=== PATIENT | female | born 1960 | race Caucasian/White ===

== ENCOUNTER → 2016-08-17 | Outpatient (CLI) | payer MEDICARE, MEDICAID ==
[~2016-08-17] MED LIST: ACET-1757 PO; ALBU0.63 NEB; AMLO5TAB2 PO; ASPI-496 PO; ASPI-621 PO; BISA10SU2 PR; BLOOD PRESSURE PO; CALC667C PO; CARV12.52 PO; CEFPODOXIME; CEPH-368 PO; CHOL500014 PO; CLON-275 PO; DAPT500V6 IV; DARB60VI SQ; DIPH25CA61 PO; DOCU-30 PO; DOXY100C2; DOXY100T PO; ERGO500017 PO; FENO145T13 PO; FLUO40CA9 PO; FLUT1AER INH; FOLI0.8T7 PO; FOLI1TAB39 PO; FURO80TA3 PO; GABA300C PO; GABA300C10 PO; GLIP10TA20 PO; HYDR-3138 PO; HYDR-3342 PO; INSU100C SQ-INSULIN; INSU100C5 SQ; INSU100I13 SQ; INSU100I28 SQ; IPRA15SP INH; LEVO750T26 PO; LINE600T37 PO; LISI-167 PO; LISI40TA PO; LOSA50TA2 PO; METF750T PO; METH4TAB2 PO; MIDO2.5T PO; MIGRAINE SL; OSEL75CA PO; OXYC-302 PO; OXYC5CAP4 PO; POLY17PO5 PO; PRAV40TA2 PO; RIZA10TA20 PO; SENN8.6C2 PO; SEVE800T8 PO; SITA100T PO; SODI650T PO; TICA90TA PO; TRAZ100T15 PO; TRAZ50TA18 PO
[2016-08-17 15:48] LABS: HEMOGLOBIN 11.8 g/dL (11.7-16.4)
[2016-08-17 16:00] LABS: BLOOD UREA NITROGEN 27 mg/dL (7-18)
[2016-08-17 16:03] LABS: ASPARTATE AMINO TRANSFERASE 20 U/L (15-37)
== END | disposition home or self-care (01) ==
LOC: CFH 13:54
PROVIDERS: ATTEND Internal Medicine Gastroenterology
DX: I11.0 Hypertensive heart disease with heart failure (principal); I50.9 Heart failure, unspecified; I25.10 Atherosclerotic heart disease of native coronary artery without angina pectoris; I12.0 Hypertensive chronic kidney disease with stage 5 chronic kidney disease or end stage renal disease; E11.65 Type 2 diabetes mellitus with hyperglycemia; E11.22 Type 2 diabetes mellitus with diabetic chronic kidney disease; N18.6 End stage renal disease
CPT/HCPCS: 36415; 80048; 80076; 82784; 83516; 85025; 85610

== ENCOUNTER → 2016-08-23 | Outpatient (CLI) | payer MEDICARE, MEDICAID | END | disposition home or self-care (01) | LOC: CFH 08:31 | PROVIDERS: ATTEND Internal Medicine | DX: J90 Pleural effusion, not elsewhere classified (principal); J98.11 Atelectasis | CPT/HCPCS: 71250 ==

== ENCOUNTER → 2016-09-01 | Outpatient (CLI) | payer MEDICAID, MEDICARE ==
[~2016-09-01] MED LIST changes: +LIDOCAINE 1%, 20ML ONE; +SODIUM BICARBONATE 4.2%, 5ML ONE
== END | disposition home or self-care (01) ==
LOC: RAD 07:53
PROVIDERS: ATTEND Internal Medicine Gastroenterology
DX: R18.8 Other ascites (principal); R14.0 Abdominal distension (gaseous); R10.9 Unspecified abdominal pain
CPT/HCPCS: 49083; J3490

== ENCOUNTER → 2016-09-28 | Outpatient (CLI) | payer MEDICAID, MEDICARE ==
[~2016-09-28] MED LIST changes: +AZIT250T89 PO; +CEFD300C37 PO; -LIDOCAINE 1%, 20ML ONE; -SODIUM BICARBONATE 4.2%, 5ML ONE; +TIOT4MIS3 INH
== END | disposition home or self-care (01) ==
LOC: CARD 11:29
PROVIDERS: ATTEND Internal Medicine
DX: J44.9 Chronic obstructive pulmonary disease, unspecified (principal)
CPT/HCPCS: 94060; 94620; 94726; 94729

== ENCOUNTER → 2016-10-29 | Outpatient (CLI) | payer MEDICARE ==
[~2016-10-29] MED LIST changes: +ALBUMIN HUMAN 25%, 25GM/100ML ONE; +LIDOCAINE 1%, 20ML ONE
== END | disposition home or self-care (01) ==
LOC: RAD 07:35
PROVIDERS: ATTEND Internal Medicine Gastroenterology
DX: R18.8 Other ascites (principal); R14.0 Abdominal distension (gaseous); R10.9 Unspecified abdominal pain; R93.8 Abnormal findings on diagnostic imaging of other specified body structures; I50.9 Heart failure, unspecified; I25.10 Atherosclerotic heart disease of native coronary artery without angina pectoris; N18.6 End stage renal disease; E11.65 Type 2 diabetes mellitus with hyperglycemia; I27.2 Other secondary pulmonary hypertension
CPT/HCPCS: 49083; J3490; P9047

== ENCOUNTER → 2016-11-04 | Outpatient (CLI) | payer MEDICARE ==
[~2016-11-04] MED LIST changes: -ALBUMIN HUMAN 25%, 25GM/100ML ONE; -LIDOCAINE 1%, 20ML ONE
== END | disposition home or self-care (01) ==
LOC: WOUND 12:52
PROVIDERS: ATTEND Podiatrist Foot & Ankle Surgery
DX: E11.621 Type 2 diabetes mellitus with foot ulcer (principal); L97.521 Non-pressure chronic ulcer of other part of left foot limited to breakdown of skin; I25.10 Atherosclerotic heart disease of native coronary artery without angina pectoris; E11.40 Type 2 diabetes mellitus with diabetic neuropathy, unspecified; J44.9 Chronic obstructive pulmonary disease, unspecified; E11.51 Type 2 diabetes mellitus with diabetic peripheral angiopathy without gangrene; E11.319 Type 2 diabetes mellitus with unspecified diabetic retinopathy without macular edema; F32.9 Major depressive disorder, single episode, unspecified; E11.22 Type 2 diabetes mellitus with diabetic chronic kidney disease; I13.2 Hypertensive heart and chronic kidney disease with heart failure and with stage 5 chronic kidney disease, or end stage renal disease; I50.9 Heart failure, unspecified; N18.6 End stage renal disease; Z99.2 Dependence on renal dialysis; I25.2 Old myocardial infarction; Z87.891 Personal history of nicotine dependence
CPT/HCPCS: 11042; G0463; WOU0463

== ENCOUNTER → 2016-11-11 | Outpatient (CLI) | payer MEDICARE | END | disposition home or self-care (01) | LOC: WOUND 13:17 | PROVIDERS: ATTEND Podiatrist Foot & Ankle Surgery | DX: E11.621 Type 2 diabetes mellitus with foot ulcer (principal); L97.521 Non-pressure chronic ulcer of other part of left foot limited to breakdown of skin; E11.40 Type 2 diabetes mellitus with diabetic neuropathy, unspecified; J44.9 Chronic obstructive pulmonary disease, unspecified; E11.22 Type 2 diabetes mellitus with diabetic chronic kidney disease; N18.4 Chronic kidney disease, stage 4 (severe); I25.2 Old myocardial infarction; Z89.432 Acquired absence of left foot; Z89.411 Acquired absence of right great toe; Z98.42 Cataract extraction status, left eye; Z98.41 Cataract extraction status, right eye; Z87.891 Personal history of nicotine dependence | CPT/HCPCS: 11042 ==

== ENCOUNTER → 2016-11-18 | Outpatient (CLI) | payer MEDICARE | END | disposition home or self-care (01) | LOC: WOUND 11:00 | PROVIDERS: ATTEND Podiatrist Foot & Ankle Surgery | DX: E11.621 Type 2 diabetes mellitus with foot ulcer (principal); L97.521 Non-pressure chronic ulcer of other part of left foot limited to breakdown of skin; E11.40 Type 2 diabetes mellitus with diabetic neuropathy, unspecified; J44.9 Chronic obstructive pulmonary disease, unspecified; E11.22 Type 2 diabetes mellitus with diabetic chronic kidney disease; I13.2 Hypertensive heart and chronic kidney disease with heart failure and with stage 5 chronic kidney disease, or end stage renal disease; I50.9 Heart failure, unspecified; N18.6 End stage renal disease; Z99.2 Dependence on renal dialysis; I25.2 Old myocardial infarction; I25.10 Atherosclerotic heart disease of native coronary artery without angina pectoris; E11.51 Type 2 diabetes mellitus with diabetic peripheral angiopathy without gangrene; E11.319 Type 2 diabetes mellitus with unspecified diabetic retinopathy without macular edema; F41.9 Anxiety disorder, unspecified; E78.5 Hyperlipidemia, unspecified; G43.909 Migraine, unspecified, not intractable, without status migrainosus; Z86.73 Personal history of transient ischemic attack (TIA), and cerebral infarction without residual deficits; Z86.711 Personal history of pulmonary embolism; Z89.411 Acquired absence of right great toe; Z79.4 Long term (current) use of insulin; Z89.432 Acquired absence of left foot; F17.210 Nicotine dependence, cigarettes, uncomplicated; E11.42 Type 2 diabetes mellitus with diabetic polyneuropathy | CPT/HCPCS: 11042 ==

== ENCOUNTER → 2016-11-24 | Outpatient (CLI) | payer MEDICARE ==
[~2016-11-24] MED LIST changes: +ALBUMIN HUMAN 25%, 25GM/100ML ONE; +LIDOCAINE 2%, 20ML ONE
== END | disposition home or self-care (01) ==
LOC: RAD 08:02
PROVIDERS: ATTEND Internal Medicine Gastroenterology
DX: R18.8 Other ascites (principal); R93.8 Abnormal findings on diagnostic imaging of other specified body structures; I50.9 Heart failure, unspecified; N18.6 End stage renal disease; I25.10 Atherosclerotic heart disease of native coronary artery without angina pectoris; E11.65 Type 2 diabetes mellitus with hyperglycemia; I27.2 Other secondary pulmonary hypertension
CPT/HCPCS: 49083; J3490; P9047

== ENCOUNTER → 2016-11-25 | Outpatient (CLI) | payer MEDICARE ==
[~2016-11-25] MED LIST changes: -ALBUMIN HUMAN 25%, 25GM/100ML ONE; -LIDOCAINE 2%, 20ML ONE
== END | disposition home or self-care (01) ==
LOC: WOUND 11:10
PROVIDERS: ATTEND Podiatrist Foot & Ankle Surgery
DX: E11.621 Type 2 diabetes mellitus with foot ulcer (principal); L97.521 Non-pressure chronic ulcer of other part of left foot limited to breakdown of skin; J44.9 Chronic obstructive pulmonary disease, unspecified; I25.2 Old myocardial infarction; F41.9 Anxiety disorder, unspecified; E11.319 Type 2 diabetes mellitus with unspecified diabetic retinopathy without macular edema; E11.51 Type 2 diabetes mellitus with diabetic peripheral angiopathy without gangrene; E11.42 Type 2 diabetes mellitus with diabetic polyneuropathy; E11.22 Type 2 diabetes mellitus with diabetic chronic kidney disease; I13.2 Hypertensive heart and chronic kidney disease with heart failure and with stage 5 chronic kidney disease, or end stage renal disease; N18.6 End stage renal disease; I50.9 Heart failure, unspecified; E78.5 Hyperlipidemia, unspecified; Z98.42 Cataract extraction status, left eye; Z98.41 Cataract extraction status, right eye; F17.210 Nicotine dependence, cigarettes, uncomplicated; Z86.711 Personal history of pulmonary embolism; Z86.73 Personal history of transient ischemic attack (TIA), and cerebral infarction without residual deficits; Z79.4 Long term (current) use of insulin; Z99.2 Dependence on renal dialysis; Z90.710 Acquired absence of both cervix and uterus; Z89.411 Acquired absence of right great toe; Z89.432 Acquired absence of left foot
CPT/HCPCS: 11042

== ENCOUNTER 2016-12-07 04:07 | Emergency (ER) | payer MEDICARE ==
[~2016-12-07] VITALS: Ht 160 cm; Wt 81.2 kg
[2016-12-07] MEDS ORDERED: OXYcodone/APAP 5/325MG TABLET ONE (05:07)
[2016-12-07] MEDS ORDERED: ONDANSETRON ODT 4 MG ONE (05:08)
[2016-12-07 05:14] VITALS: BP 107/41
[2016-12-07] MEDS ORDERED: OXYcodone/APAP 5/325MG TABLET PO ONE (05:30)
[2016-12-07] MEDS ORDERED: ONDANSETRON ODT 4 MG PO ONE (05:30)
== END 2016-12-07 05:27 | disposition home or self-care (01) ==
LOC: ED 05:20
DX: S09.90XA Unspecified injury of head, initial encounter (principal); I11.9 Hypertensive heart disease without heart failure; E11.65 Type 2 diabetes mellitus with hyperglycemia; J44.9 Chronic obstructive pulmonary disease, unspecified; I25.2 Old myocardial infarction; E87.1 Hypo-osmolality and hyponatremia; W03.XXXA Other fall on same level due to collision with another person, initial encounter; Y93.89 Activity, other specified; Y92.091 Bathroom in other non-institutional residence as the place of occurrence of the external cause; Y99.9 Unspecified external cause status
CPT/HCPCS: 70450; 99284; Q0162

== ENCOUNTER 2016-12-09 11:38 | Emergency (ER) | payer MEDICARE ==
[~2016-12-09] VITALS: Ht 160 cm; Wt 77.1 kg
[2016-12-09] MEDS ORDERED: SODIUM CHLORIDE FLUSH 10ML SYR IVF ONE (13:00)
[2016-12-09] MEDS ORDERED: SODIUM CHLORIDE 0.9% 1,000ML IVBOLUS ONE (13:00)
[2016-12-09] MEDS ORDERED: HYDROmorphone 1 MG/ML, 1ML IVPush PRN (13:00)
[2016-12-09] MEDS ORDERED: ONDANSETRON 2MG/ML, 2ML IVPush ONE (13:00)
[2016-12-09 13:06] LABS: ASPARTATE AMINO TRANSFERASE 21 U/L (15-37); BLOOD UREA NITROGEN 28 mg/dL (7-18)
[2016-12-09] MEDS ORDERED: HYDROmorphone 1 MG/ML, 1ML ONE (13:06)
[2016-12-09] MEDS ORDERED: ONDANSETRON 2MG/ML, 2ML ONE (13:06)
[2016-12-09 15:08] LABS: IS PT STATUS REG ER OR PRE ER? YES
[2016-12-09 15:28] VITALS: BP 108/57
== END 2016-12-09 15:30 | disposition home or self-care (01) ==
LOC: ED 14:36
DX: E11.9 Type 2 diabetes mellitus without complications (principal); I11.9 Hypertensive heart disease without heart failure; J44.9 Chronic obstructive pulmonary disease, unspecified; I25.2 Old myocardial infarction; Z90.49 Acquired absence of other specified parts of digestive tract; Z88.0 Allergy status to penicillin; Z88.2 Allergy status to sulfonamides; Z88.6 Allergy status to analgesic agent
CPT/HCPCS: 36415; 70450; 80053; 84484; 85025; 93005; 96361; 96374; 96375; 99285; J1170; J2405; J7030

== ENCOUNTER → 2016-12-09 | Outpatient (CLI) | payer MEDICARE | END | disposition home or self-care (01) | LOC: WOUND 10:57 | PROVIDERS: ATTEND Podiatrist Foot & Ankle Surgery | DX: E11.621 Type 2 diabetes mellitus with foot ulcer (principal); L97.521 Non-pressure chronic ulcer of other part of left foot limited to breakdown of skin; J44.9 Chronic obstructive pulmonary disease, unspecified; I25.2 Old myocardial infarction; F41.9 Anxiety disorder, unspecified; F32.9 Major depressive disorder, single episode, unspecified; E78.5 Hyperlipidemia, unspecified; E11.51 Type 2 diabetes mellitus with diabetic peripheral angiopathy without gangrene; E11.40 Type 2 diabetes mellitus with diabetic neuropathy, unspecified; E11.319 Type 2 diabetes mellitus with unspecified diabetic retinopathy without macular edema; I25.10 Atherosclerotic heart disease of native coronary artery without angina pectoris; E11.22 Type 2 diabetes mellitus with diabetic chronic kidney disease; I13.2 Hypertensive heart and chronic kidney disease with heart failure and with stage 5 chronic kidney disease, or end stage renal disease; N18.6 End stage renal disease; I50.9 Heart failure, unspecified; F17.210 Nicotine dependence, cigarettes, uncomplicated; Z99.2 Dependence on renal dialysis; Z79.4 Long term (current) use of insulin; Z90.710 Acquired absence of both cervix and uterus; Z86.73 Personal history of transient ischemic attack (TIA), and cerebral infarction without residual deficits; Z86.711 Personal history of pulmonary embolism; Z98.41 Cataract extraction status, right eye; Z98.42 Cataract extraction status, left eye; Z89.411 Acquired absence of right great toe; Z89.421 Acquired absence of other right toe(s); Z89.432 Acquired absence of left foot | CPT/HCPCS: 97597; G0463; WOU0463 ==

== ENCOUNTER → 2016-12-16 | Outpatient (CLI) | payer MEDICARE | END | disposition home or self-care (01) | LOC: WOUND 11:03 | PROVIDERS: ATTEND Podiatrist Foot & Ankle Surgery | DX: E11.621 Type 2 diabetes mellitus with foot ulcer (principal); L97.521 Non-pressure chronic ulcer of other part of left foot limited to breakdown of skin; J44.9 Chronic obstructive pulmonary disease, unspecified; I25.2 Old myocardial infarction; E11.42 Type 2 diabetes mellitus with diabetic polyneuropathy; E11.22 Type 2 diabetes mellitus with diabetic chronic kidney disease; I13.2 Hypertensive heart and chronic kidney disease with heart failure and with stage 5 chronic kidney disease, or end stage renal disease; N18.6 End stage renal disease; I50.9 Heart failure, unspecified; Z99.2 Dependence on renal dialysis; I25.10 Atherosclerotic heart disease of native coronary artery without angina pectoris; F41.9 Anxiety disorder, unspecified; E78.5 Hyperlipidemia, unspecified; F32.9 Major depressive disorder, single episode, unspecified; E11.40 Type 2 diabetes mellitus with diabetic neuropathy, unspecified; E11.51 Type 2 diabetes mellitus with diabetic peripheral angiopathy without gangrene; E11.319 Type 2 diabetes mellitus with unspecified diabetic retinopathy without macular edema; Z86.711 Personal history of pulmonary embolism; Z86.73 Personal history of transient ischemic attack (TIA), and cerebral infarction without residual deficits; F17.210 Nicotine dependence, cigarettes, uncomplicated; Z79.4 Long term (current) use of insulin; Z89.421 Acquired absence of other right toe(s); Z90.710 Acquired absence of both cervix and uterus; Z89.411 Acquired absence of right great toe; Z89.432 Acquired absence of left foot | CPT/HCPCS: 11042 ==

== ENCOUNTER → 2016-12-22 | Outpatient (CLI) | payer MEDICARE ==
[~2016-12-22] MED LIST changes: +LIDOCAINE 1%, 20ML ONE
== END | disposition home or self-care (01) ==
LOC: RAD 07:59
PROVIDERS: ATTEND Internal Medicine Gastroenterology
DX: R18.8 Other ascites (principal); R93.8 Abnormal findings on diagnostic imaging of other specified body structures; I12.0 Hypertensive chronic kidney disease with stage 5 chronic kidney disease or end stage renal disease; I50.9 Heart failure, unspecified; N18.6 End stage renal disease; E11.22 Type 2 diabetes mellitus with diabetic chronic kidney disease; E11.65 Type 2 diabetes mellitus with hyperglycemia; I25.10 Atherosclerotic heart disease of native coronary artery without angina pectoris
CPT/HCPCS: 49083; J3490

== ENCOUNTER 2017-01-02 22:53 | Inpatient (IN) | payer MEDICARE, OTHER ==
[~2017-01-02] VITALS: Ht 160 cm; Wt 75.4 kg
[~2017-01-02 22:53] MED LIST changes: -LIDOCAINE 1%, 20ML ONE
[2017-01-02] MEDS ORDERED: ALBUTEROL/IPRATROPIUM 2.5MG/0.5MG, 3 ML NPPB SCH (23:00)
[2017-01-02] MEDS ORDERED: SODIUM CHLORIDE FLUSH 10ML SYR IVF ONE (23:00)
[2017-01-02] MEDS ORDERED: FUROSEMIDE 40 MG/4 ML IVP ONE (23:00)
[2017-01-02] MEDS ORDERED: ALBUTEROL/IPRATROPIUM 2.5MG/0.5MG, 3 ML ONE ×2 (23:16)
[2017-01-02 23:25] LABS: HEMATOCRIT 33.5 % (34.6-47.8); HEMOGLOBIN 10.8 g/dL (11.7-16.4); WHITE BLOOD COUNT 6.7 x10^3/uL (3.4-10)
[2017-01-02 23:39] LABS: ASPARTATE AMINO TRANSFERASE 25 U/L (15-37); BLOOD UREA NITROGEN 76 mg/dL (7-18)
[2017-01-02 23:50] LABS: IS PT STATUS REG ER OR PRE ER? YES
[2017-01-03] MEDS ORDERED: LEVOFLOXACIN/PMX 750MG/150ML 150 ML IV ONE (00:30)
[2017-01-03] MEDS ORDERED: LEVOFLOXACIN/PMX 750MG/150ML 150 ML ONE ×2 (00:34→00:35)
[2017-01-03] MEDS ORDERED: ONDANSETRON ODT 4 MG PO PRN (01:00)
[2017-01-03] MEDS ORDERED: ACETAMINOPHEN 325 MG TABLET PO PRN (01:00)
[2017-01-03] MEDS ORDERED: POLYETHYLENE GLYCOL 17 GM PACKET PO PRN (01:00)
[2017-01-03] MEDS ORDERED: hydrALAzine 20 MG/ML, 1ML IVPush PRN (01:00)
[2017-01-03 01:42] VITALS: BP 116/66
[2017-01-03] MEDS ORDERED: TIOT4MIS3 IH (02:08)
[2017-01-03 02:16] VITALS: BP 116/66
[2017-01-03] MEDS: HEPARIN 5,000 UNITS/ML, 1ML SQ SCH ×3 (02:29→17:27)
[2017-01-03] MEDS: ALBUTEROL/IPRATROPIUM 2.5MG/0.5MG, 3 ML NPPB SCH ×4 (05:13→20:00)
[2017-01-03] MEDS ORDERED: FUROSEMIDE 40 MG/4 ML IV SCH (07:30)
[2017-01-03 08:51] VITALS: BP 123/74
[2017-01-03] MEDS: INSULIN ASPART 100 UNITS/ML, PEN SQ-INSULIN SCH ×4 (08:53→21:31)
[2017-01-03] MEDS ORDERED: DARBEPOETIN 60 MCG/ML SQ SCH (11:30)
[2017-01-03] MEDS ORDERED: PHARMACY MAY ADJ FOR RENAL FX MC PRN (11:30)
[2017-01-03] MEDS ORDERED: CINA30TA PO (12:13)
[2017-01-03] MEDS ORDERED: VILA40TA PO (12:13)
[2017-01-03 13:32] VITALS: BP 122/76
[2017-01-03 18:50] VITALS: BP 119/68
[2017-01-03 21:30] VITALS: BP 124/68
[2017-01-04] MEDS ORDERED: LEVOFLOXACIN/PMX 750MG/150ML 150 ML IV SCH (00:30)
[2017-01-04 00:44] VITALS: BP 115/50
[2017-01-04] MEDS: HEPARIN 5,000 UNITS/ML, 1ML SQ SCH ×3 (00:48→16:28)
[2017-01-04] MEDS: TRAZODONE 50MG TABLET PO PRN (00:48)
[2017-01-04 06:18] LABS: HEMATOCRIT 31.3 % (34.6-47.8); HEMOGLOBIN 10.2 g/dL (11.7-16.4); WHITE BLOOD COUNT 8.8 x10^3/uL (3.4-10)
[2017-01-04 06:30] LABS: BLOOD UREA NITROGEN 53 mg/dL (7-18)
[2017-01-04] MEDS: INSULIN ASPART 100 UNITS/ML, PEN SQ-INSULIN SCH ×4 (07:00→20:43)
[2017-01-04 07:02] VITALS: BP 126/74
[2017-01-04] MEDS: ALBUTEROL/IPRATROPIUM 2.5MG/0.5MG, 3 ML NPPB SCH ×4 (07:36→19:25)
[2017-01-04 13:30] VITALS: BP 138/77
[2017-01-04 20:55] VITALS: BP 116/62
[2017-01-05] MEDS: HEPARIN 5,000 UNITS/ML, 1ML SQ SCH ×3 (02:12→18:23)
[2017-01-05 02:18] VITALS: BP 114/67
[2017-01-05] MEDS ORDERED: SIMETHICONE 80 MG CHEW TAB PO PRN (03:00)
[2017-01-05 06:27] LABS: BLOOD UREA NITROGEN 44 mg/dL (7-18)
[2017-01-05] MEDS: INSULIN ASPART 100 UNITS/ML, PEN SQ-INSULIN SCH ×4 (07:00→21:35)
[2017-01-05] MEDS: ALBUTEROL/IPRATROPIUM 2.5MG/0.5MG, 3 ML NPPB SCH ×4 (07:48→20:10)
[2017-01-05 07:59] VITALS: BP 127/79
[2017-01-05] MEDS: (Vilazodone Hydrochloride** (Viibryd**) 40 MG) HOMEMEDPO SCH (09:30)
[2017-01-05] MEDS: CINACALCET 30 MG TABLET PO SCH (11:03)
[2017-01-05] MEDS: ASPIRIN 81 MG TABLET EC PO SCH (11:03)
[2017-01-05] MEDS: MIDODRINE 2.5 MG TABLET PO SCH ×3 (11:56→21:34)
[2017-01-05] MEDS: SEVELAMER 2.4 GM POWD.PACK PO SCH ×2 (12:58→21:34)
[2017-01-05 16:09] VITALS: BP 129/84
[2017-01-05 16:54] VITALS: BP 128/80
[2017-01-05 18:01] VITALS: BP 130/80
[2017-01-05 20:46] VITALS: BP 129/73
[2017-01-05] MEDS ORDERED: TRAZODONE 50MG TABLET ONE ×2 (21:28→23:16)
[2017-01-05] MEDS: GABAPENTIN 300 MG CAPSULE PO SCH (21:34)
[2017-01-05] MEDS: TRAZODONE 50MG TABLET PO PRN ×2 (21:34→23:25)
[2017-01-06] MEDS ORDERED: ALBUTEROL/IPRATROPIUM 2.5MG/0.5MG, 3 ML IPPB PRN (00:30)
[2017-01-06] MEDS ORDERED: LEVOFLOXACIN/PMX 500MG/100ML 100 ML IV SCH (00:30)
[2017-01-06] MEDS: HEPARIN 5,000 UNITS/ML, 1ML SQ SCH ×3 (01:16→17:00)
[2017-01-06 01:19] VITALS: BP 128/81
[2017-01-06 05:39] LABS: HEMATOCRIT 33.6 % (34.6-47.8); HEMOGLOBIN 10.9 g/dL (11.7-16.4); WHITE BLOOD COUNT 9.4 x10^3/uL (3.4-10)
[2017-01-06 05:59] LABS: BLOOD UREA NITROGEN 65 mg/dL (7-18)
[2017-01-06] MEDS: INSULIN ASPART 100 UNITS/ML, PEN SQ-INSULIN SCH ×4 (07:00→21:36)
[2017-01-06] MEDS: ALBUTEROL/IPRATROPIUM 2.5MG/0.5MG, 3 ML NPPB SCH ×4 (07:46→19:00)
[2017-01-06 08:09] VITALS: BP 121/76
[2017-01-06] MEDS: (Vilazodone Hydrochloride** (Viibryd**) 40 MG) HOMEMEDPO SCH (09:00)
[2017-01-06] MEDS: SEVELAMER 2.4 GM POWD.PACK PO SCH ×3 (10:21→16:59)
[2017-01-06] MEDS: MIDODRINE 2.5 MG TABLET PO SCH ×3 (10:21→21:36)
[2017-01-06] MEDS: CINACALCET 30 MG TABLET PO SCH (10:21)
[2017-01-06] MEDS: ASPIRIN 81 MG TABLET EC PO SCH (10:21)
[2017-01-06 14:00] VITALS: BP 119/67
[2017-01-06 20:17] VITALS: BP 136/84
[2017-01-06] MEDS: GABAPENTIN 300 MG CAPSULE PO SCH (21:36)
[2017-01-06] MEDS ORDERED: TRAZODONE 50MG TABLET ONE (21:54)
[2017-01-06] MEDS: TRAZODONE 50MG TABLET PO PRN (21:59)
[2017-01-07 00:01] VITALS: BP 130/60
[2017-01-07] MEDS: HEPARIN 5,000 UNITS/ML, 1ML SQ SCH ×2 (01:00→08:58)
[2017-01-07 06:40] VITALS: BP 118/79
[2017-01-07] MEDS: ALBUTEROL/IPRATROPIUM 2.5MG/0.5MG, 3 ML NPPB SCH ×3 (07:25→14:55)
[2017-01-07] MEDS: INSULIN ASPART 100 UNITS/ML, PEN SQ-INSULIN SCH ×2 (08:57→12:12)
[2017-01-07] MEDS: CINACALCET 30 MG TABLET PO SCH (08:58)
[2017-01-07] MEDS: ASPIRIN 81 MG TABLET EC PO SCH (08:58)
[2017-01-07] MEDS: SEVELAMER 2.4 GM POWD.PACK PO SCH ×2 (08:58→12:12)
[2017-01-07] MEDS: (Vilazodone Hydrochloride** (Viibryd**) 40 MG) HOMEMEDPO SCH (08:59)
[2017-01-07] MEDS: MIDODRINE 2.5 MG TABLET PO SCH (08:59)
[2017-01-07] MEDS ORDERED: LEVO500T33 PO (11:40)
[2017-01-07] MEDS ORDERED: ALBU8.5H3 INH (11:40)
[2017-01-07 12:44] VITALS: BP 127/83
[2017-01-08] MEDS ORDERED: LEVOFLOXACIN 500 MG TABLET PO SCH (01:30)
== END 2017-01-07 15:00 | disposition home or self-care (01) | DRG 291 ==
LOC: ED 22:59 → EDIP 01-03 00:29 → 5SO 01-03 01:21 → 4EST 01-05 17:35
PROVIDERS: ADMIT Internal Medicine; ATTEND Internal Medicine
PROC: 5A1D60Z (ICD-10-PCS; principal; 2017-01-03)
DX: I13.2 Hypertensive heart and chronic kidney disease with heart failure and with stage 5 chronic kidney disease, or end stage renal disease (principal); J15.9 Unspecified bacterial pneumonia; I50.33 Acute on chronic diastolic (congestive) heart failure; J96.20 Acute and chronic respiratory failure, unspecified whether with hypoxia or hypercapnia; N18.6 End stage renal disease; J44.0 Chronic obstructive pulmonary disease with (acute) lower respiratory infection; J44.1 Chronic obstructive pulmonary disease with (acute) exacerbation; E44.0 Moderate protein-calorie malnutrition; E87.1 Hypo-osmolality and hyponatremia; F33.9 Major depressive disorder, recurrent, unspecified; J98.11 Atelectasis; L03.116 Cellulitis of left lower limb; N17.9 Acute kidney failure, unspecified; R18.8 Other ascites; N39.0 Urinary tract infection, site not specified; D63.1 Anemia in chronic kidney disease; E11.22 Type 2 diabetes mellitus with diabetic chronic kidney disease; E11.42 Type 2 diabetes mellitus with diabetic polyneuropathy; E11.65 Type 2 diabetes mellitus with hyperglycemia; E66.9 Obesity, unspecified; E78.5 Hyperlipidemia, unspecified; E55.9 Vitamin D deficiency, unspecified; G43.909 Migraine, unspecified, not intractable, without status migrainosus; I25.10 Atherosclerotic heart disease of native coronary artery without angina pectoris; I27.2 Other secondary pulmonary hypertension; K72.90 Hepatic failure, unspecified without coma; K75.81 Nonalcoholic steatohepatitis (NASH); M10.9 Gout, unspecified; S91.302A Unspecified open wound, left foot, initial encounter; W18.39XA Other fall on same level, initial encounter; I25.2 Old myocardial infarction; Z79.4 Long term (current) use of insulin; Z82.49 Family history of ischemic heart disease and other diseases of the circulatory system; Z83.3 Family history of diabetes mellitus; Z86.711 Personal history of pulmonary embolism; Z87.01 Personal history of pneumonia (recurrent); Z87.891 Personal history of nicotine dependence; Z95.5 Presence of coronary angioplasty implant and graft; Z99.2 Dependence on renal dialysis; Z99.81 Dependence on supplemental oxygen; Y93.89 Activity, other specified; Y92.098 Other place in other non-institutional residence as the place of occurrence of the external cause; Y99.8 Other external cause status; Z68.29 Body mass index [BMI] 29.0-29.9, adult; Z90.49 Acquired absence of other specified parts of digestive tract; Z98.51 Tubal ligation status; Z89.432 Acquired absence of left foot; Z98.49 Cataract extraction status, unspecified eye; Z88.5 Allergy status to narcotic agent; Z88.0 Allergy status to penicillin; Z88.2 Allergy status to sulfonamides; Z88.8 Allergy status to other drugs, medicaments and biological substances; Z80.8 Family history of malignant neoplasm of other organs or systems; Z84.89 Family history of other specified conditions
CPT/HCPCS: 36415; 71010; 80048; 80053; 81001; 82962; 83036; 83605; 83735; 83880; 84100; 84484; 85025; 85610; 87040; 87086; 93005; 93306; 94640; 96365; J0881; J1644; J1815; J1956; J7620; Q0162; J7512

== ENCOUNTER → 2017-01-13 | Outpatient (CLI) | payer MEDICARE ==
[~2017-01-13] MED LIST changes: +ALBU8.5H8 INH; -CHOL500014 PO; +CHOL500045 PO; +CINA30TA2 PO; +DOCU-131 PO; -DOCU-30 PO; +GLIP-164 PO; -GLIP10TA20 PO; -HYDR-3138 PO; +HYDR-3237 PO; +LEVO500T47 PO; +OXYC5CAP2 PO; -OXYC5CAP4 PO; +TIOT4MIS3 IH; +VILA40TA PO
== END | disposition home or self-care (01) ==
LOC: WOUND 11:00
PROVIDERS: ATTEND Podiatrist Foot & Ankle Surgery
DX: E11.621 Type 2 diabetes mellitus with foot ulcer (principal); L97.521 Non-pressure chronic ulcer of other part of left foot limited to breakdown of skin; I25.10 Atherosclerotic heart disease of native coronary artery without angina pectoris; F32.9 Major depressive disorder, single episode, unspecified; E11.311 Type 2 diabetes mellitus with unspecified diabetic retinopathy with macular edema; E11.22 Type 2 diabetes mellitus with diabetic chronic kidney disease; I13.2 Hypertensive heart and chronic kidney disease with heart failure and with stage 5 chronic kidney disease, or end stage renal disease; N18.6 End stage renal disease; I50.33 Acute on chronic diastolic (congestive) heart failure; J44.1 Chronic obstructive pulmonary disease with (acute) exacerbation; E78.5 Hyperlipidemia, unspecified; E11.42 Type 2 diabetes mellitus with diabetic polyneuropathy; E11.51 Type 2 diabetes mellitus with diabetic peripheral angiopathy without gangrene; I25.2 Old myocardial infarction; F41.9 Anxiety disorder, unspecified; Z68.29 Body mass index [BMI] 29.0-29.9, adult; E66.9 Obesity, unspecified; Z98.42 Cataract extraction status, left eye; Z98.41 Cataract extraction status, right eye; Z99.2 Dependence on renal dialysis; Z79.4 Long term (current) use of insulin; Z87.01 Personal history of pneumonia (recurrent); Z87.891 Personal history of nicotine dependence; Z88.8 Allergy status to other drugs, medicaments and biological substances; Z88.0 Allergy status to penicillin; Z88.5 Allergy status to narcotic agent; Z88.2 Allergy status to sulfonamides; Z88.6 Allergy status to analgesic agent; Z86.711 Personal history of pulmonary embolism; Z89.411 Acquired absence of right great toe; Z89.421 Acquired absence of other right toe(s); Z89.432 Acquired absence of left foot; Z90.49 Acquired absence of other specified parts of digestive tract; Z90.710 Acquired absence of both cervix and uterus; Z86.73 Personal history of transient ischemic attack (TIA), and cerebral infarction without residual deficits
CPT/HCPCS: 11042

== ENCOUNTER → 2017-01-19 | Outpatient (CLI) | payer MEDICAID, MEDICARE ==
[~2017-01-19] MED LIST changes: +ALBUMIN HUMAN 25%, 25GM/100ML ONE; +LIDOCAINE 1%, 20ML ONE
== END | disposition home or self-care (01) ==
LOC: RAD 15:13
PROVIDERS: ATTEND Internal Medicine Gastroenterology
DX: R18.8 Other ascites (principal); I13.2 Hypertensive heart and chronic kidney disease with heart failure and with stage 5 chronic kidney disease, or end stage renal disease; E11.22 Type 2 diabetes mellitus with diabetic chronic kidney disease; E11.65 Type 2 diabetes mellitus with hyperglycemia; N18.6 End stage renal disease; I50.9 Heart failure, unspecified; I25.10 Atherosclerotic heart disease of native coronary artery without angina pectoris; J44.9 Chronic obstructive pulmonary disease, unspecified; F32.9 Major depressive disorder, single episode, unspecified; R93.8 Abnormal findings on diagnostic imaging of other specified body structures; Z88.8 Allergy status to other drugs, medicaments and biological substances; Z79.899 Other long term (current) drug therapy
CPT/HCPCS: 49083; J3490; P9047

== ENCOUNTER → 2017-01-20 | Outpatient (CLI) | payer MEDICARE ==
[~2017-01-20] MED LIST changes: -ALBUMIN HUMAN 25%, 25GM/100ML ONE; -LIDOCAINE 1%, 20ML ONE
== END | disposition home or self-care (01) ==
LOC: WOUND 11:00
PROVIDERS: ATTEND Podiatrist Foot & Ankle Surgery
DX: E11.621 Type 2 diabetes mellitus with foot ulcer (principal); L97.521 Non-pressure chronic ulcer of other part of left foot limited to breakdown of skin; I25.10 Atherosclerotic heart disease of native coronary artery without angina pectoris; E11.42 Type 2 diabetes mellitus with diabetic polyneuropathy; E11.311 Type 2 diabetes mellitus with unspecified diabetic retinopathy with macular edema; E11.51 Type 2 diabetes mellitus with diabetic peripheral angiopathy without gangrene; E11.22 Type 2 diabetes mellitus with diabetic chronic kidney disease; I13.2 Hypertensive heart and chronic kidney disease with heart failure and with stage 5 chronic kidney disease, or end stage renal disease; N18.6 End stage renal disease; I50.33 Acute on chronic diastolic (congestive) heart failure; F41.9 Anxiety disorder, unspecified; J44.1 Chronic obstructive pulmonary disease with (acute) exacerbation; E66.9 Obesity, unspecified; F32.9 Major depressive disorder, single episode, unspecified; E78.5 Hyperlipidemia, unspecified; I25.2 Old myocardial infarction; F17.210 Nicotine dependence, cigarettes, uncomplicated; Z90.710 Acquired absence of both cervix and uterus; Z89.432 Acquired absence of left foot; Z89.421 Acquired absence of other right toe(s); Z90.49 Acquired absence of other specified parts of digestive tract; Z89.411 Acquired absence of right great toe; Z98.42 Cataract extraction status, left eye; Z98.41 Cataract extraction status, right eye; Z99.2 Dependence on renal dialysis; Z79.4 Long term (current) use of insulin; Z87.01 Personal history of pneumonia (recurrent); Z86.711 Personal history of pulmonary embolism; Z86.73 Personal history of transient ischemic attack (TIA), and cerebral infarction without residual deficits
CPT/HCPCS: 15275; Q4172

== ENCOUNTER → 2017-01-27 | Outpatient (CLI) | payer MEDICARE | END | disposition home or self-care (01) | LOC: WOUND 10:46 | PROVIDERS: ATTEND Podiatrist Foot & Ankle Surgery | DX: E11.621 Type 2 diabetes mellitus with foot ulcer (principal); L97.521 Non-pressure chronic ulcer of other part of left foot limited to breakdown of skin; J44.9 Chronic obstructive pulmonary disease, unspecified; E11.40 Type 2 diabetes mellitus with diabetic neuropathy, unspecified; E11.22 Type 2 diabetes mellitus with diabetic chronic kidney disease; I13.2 Hypertensive heart and chronic kidney disease with heart failure and with stage 5 chronic kidney disease, or end stage renal disease; N18.6 End stage renal disease; I50.33 Acute on chronic diastolic (congestive) heart failure; Z99.2 Dependence on renal dialysis; E78.5 Hyperlipidemia, unspecified; E21.3 Hyperparathyroidism, unspecified; F32.9 Major depressive disorder, single episode, unspecified; G43.909 Migraine, unspecified, not intractable, without status migrainosus; Z90.710 Acquired absence of both cervix and uterus; F41.9 Anxiety disorder, unspecified; I25.10 Atherosclerotic heart disease of native coronary artery without angina pectoris; Z79.4 Long term (current) use of insulin; I25.2 Old myocardial infarction; Z86.711 Personal history of pulmonary embolism; Z86.73 Personal history of transient ischemic attack (TIA), and cerebral infarction without residual deficits; E11.42 Type 2 diabetes mellitus with diabetic polyneuropathy; E11.319 Type 2 diabetes mellitus with unspecified diabetic retinopathy without macular edema; Z87.891 Personal history of nicotine dependence | CPT/HCPCS: 15275; Q4172 ==

== ENCOUNTER 2017-02-02 06:48 | Day surgery (SDC) | payer MEDICAID, MEDICARE ==
[~2017-02-02] VITALS: Ht 160 cm; Wt 89.5 kg
[2017-02-02 10:00] VITALS: BP 120/81
[2017-02-02] MEDS ORDERED: LIDOCAINE 2%, 20ML ONE (11:20)
[2017-02-02] MEDS ORDERED: FENTANYL PF 100 MCG/2ML ONE ×2 (11:23→11:24)
[2017-02-02] MEDS ORDERED: MIDAZOLAM 1 MG/ML, 5ML ONE (11:23)
[2017-02-02] MEDS ORDERED: NALOXONE 1 MG/ML, 2ML ONE (11:24)
[2017-02-02] MEDS ORDERED: FLUMAZENIL 0.1 MG/1 ML, 5ML ONE (11:24)
== END 2017-02-02 15:40 ==
LOC: OUT 06:48
PROVIDERS: ATTEND Internal Medicine Gastroenterology
DX: R18.8 Other ascites (principal); E11.22 Type 2 diabetes mellitus with diabetic chronic kidney disease; I12.0 Hypertensive chronic kidney disease with stage 5 chronic kidney disease or end stage renal disease; E11.40 Type 2 diabetes mellitus with diabetic neuropathy, unspecified; N18.6 End stage renal disease; F32.9 Major depressive disorder, single episode, unspecified; E21.3 Hyperparathyroidism, unspecified; J44.9 Chronic obstructive pulmonary disease, unspecified; D64.9 Anemia, unspecified; E78.5 Hyperlipidemia, unspecified; G43.909 Migraine, unspecified, not intractable, without status migrainosus; M10.9 Gout, unspecified; Z88.6 Allergy status to analgesic agent; Z88.1 Allergy status to other antibiotic agents; Z88.0 Allergy status to penicillin; Z90.49 Acquired absence of other specified parts of digestive tract; Z98.890 Other specified postprocedural states; Z95.5 Presence of coronary angioplasty implant and graft; Z98.49 Cataract extraction status, unspecified eye; Z98.51 Tubal ligation status
CPT/HCPCS: 36011; 36415; 37200; 47000; 49083; 75970; 85610; 88307; 88313; 99156; 99157; C1769; C1894; J2250; J3010; J3490; J2310

== ENCOUNTER → 2017-02-03 | Outpatient (CLI) | payer MEDICARE | END | disposition home or self-care (01) | LOC: WOUND 11:00 | PROVIDERS: ATTEND Podiatrist Foot & Ankle Surgery | DX: E11.621 Type 2 diabetes mellitus with foot ulcer (principal); L97.521 Non-pressure chronic ulcer of other part of left foot limited to breakdown of skin; E78.5 Hyperlipidemia, unspecified; E21.3 Hyperparathyroidism, unspecified; E11.22 Type 2 diabetes mellitus with diabetic chronic kidney disease; I13.2 Hypertensive heart and chronic kidney disease with heart failure and with stage 5 chronic kidney disease, or end stage renal disease; N18.6 End stage renal disease; I50.33 Acute on chronic diastolic (congestive) heart failure; F41.9 Anxiety disorder, unspecified; I25.10 Atherosclerotic heart disease of native coronary artery without angina pectoris; E11.319 Type 2 diabetes mellitus with unspecified diabetic retinopathy without macular edema; I25.2 Old myocardial infarction; J44.1 Chronic obstructive pulmonary disease with (acute) exacerbation; E11.42 Type 2 diabetes mellitus with diabetic polyneuropathy; E66.9 Obesity, unspecified; F33.9 Major depressive disorder, recurrent, unspecified; Z86.73 Personal history of transient ischemic attack (TIA), and cerebral infarction without residual deficits; Z98.42 Cataract extraction status, left eye; Z98.41 Cataract extraction status, right eye; F17.210 Nicotine dependence, cigarettes, uncomplicated; Z87.01 Personal history of pneumonia (recurrent); Z86.711 Personal history of pulmonary embolism; Z90.710 Acquired absence of both cervix and uterus; Z90.49 Acquired absence of other specified parts of digestive tract; Z89.411 Acquired absence of right great toe; Z89.421 Acquired absence of other right toe(s); Z89.432 Acquired absence of left foot; Z79.4 Long term (current) use of insulin; Z68.29 Body mass index [BMI] 29.0-29.9, adult; Z99.2 Dependence on renal dialysis | CPT/HCPCS: 15275; Q4172 ==

== ENCOUNTER → 2017-02-16 | Outpatient (CLI) | payer MEDICARE ==
[~2017-02-16] MED LIST changes: +ALBUMIN HUMAN 25%, 25GM/100ML ONE; +LIDOCAINE 1%, 20ML ONE
[2017-02-16 13:48] LABS: CYTOLOGY BODY FLUID RECD INTO PATHOLOGY; CYTOLOGY BODY FLUID SOURCE ASCITES FLUID
[2017-02-16 14:24] LABS: HEMOGLOBIN 11.4 g/dL (11.7-16.4); WHITE BLOOD COUNT 6.6 x10^3/uL (3.4-10)
[2017-02-16 14:32] LABS: BLOOD UREA NITROGEN 39 mg/dL (7-18)
[2017-02-16 14:37] LABS: ASPARTATE AMINO TRANSFERASE 14 U/L (15-37)
== END | disposition home or self-care (01) ==
LOC: RAD 11:43
PROVIDERS: ATTEND Internal Medicine Gastroenterology
DX: R18.8 Other ascites (principal); R19.7 Diarrhea, unspecified; R14.0 Abdominal distension (gaseous)
CPT/HCPCS: 36415; 49083; 80053; 82042; 82150; 83615; 83690; 84157; 85027; 87070; 87075; 87205; 88112; 88305; 89051; J3490; P9047

== ENCOUNTER → 2017-02-17 | Outpatient (CLI) | payer MEDICARE ==
[~2017-02-17] MED LIST changes: -ALBUMIN HUMAN 25%, 25GM/100ML ONE; -LIDOCAINE 1%, 20ML ONE
== END | disposition home or self-care (01) ==
LOC: WOUND 11:00
PROVIDERS: ATTEND Podiatrist Foot & Ankle Surgery
DX: E11.621 Type 2 diabetes mellitus with foot ulcer (principal); L97.521 Non-pressure chronic ulcer of other part of left foot limited to breakdown of skin; F41.9 Anxiety disorder, unspecified; I25.10 Atherosclerotic heart disease of native coronary artery without angina pectoris; J44.9 Chronic obstructive pulmonary disease, unspecified; E11.22 Type 2 diabetes mellitus with diabetic chronic kidney disease; I13.2 Hypertensive heart and chronic kidney disease with heart failure and with stage 5 chronic kidney disease, or end stage renal disease; I50.33 Acute on chronic diastolic (congestive) heart failure; N18.6 End stage renal disease; Z99.2 Dependence on renal dialysis; E78.5 Hyperlipidemia, unspecified; Z79.4 Long term (current) use of insulin; E66.9 Obesity, unspecified; I25.2 Old myocardial infarction; E11.42 Type 2 diabetes mellitus with diabetic polyneuropathy; E11.319 Type 2 diabetes mellitus with unspecified diabetic retinopathy without macular edema; F17.210 Nicotine dependence, cigarettes, uncomplicated; Z68.30 Body mass index [BMI] 30.0-30.9, adult; Z86.73 Personal history of transient ischemic attack (TIA), and cerebral infarction without residual deficits; Z87.01 Personal history of pneumonia (recurrent); Z86.711 Personal history of pulmonary embolism; E11.51 Type 2 diabetes mellitus with diabetic peripheral angiopathy without gangrene
CPT/HCPCS: 97597

== ENCOUNTER → 2017-02-18 | Outpatient (CLI) | payer MEDICARE ==
[~2017-02-18] MED LIST changes: +OMNIPAQUE 350 MG/ML, 100ML BOTTLE ONE
== END | disposition home or self-care (01) ==
LOC: CFH 15:15
PROVIDERS: ATTEND Internal Medicine Gastroenterology
DX: K76.89 Other specified diseases of liver (principal); N28.1 Cyst of kidney, acquired; J90 Pleural effusion, not elsewhere classified; J98.11 Atelectasis; R18.8 Other ascites; Z88.8 Allergy status to other drugs, medicaments and biological substances
CPT/HCPCS: 74177; Q9967

== ENCOUNTER → 2017-03-03 | Outpatient (CLI) | payer MEDICARE ==
[~2017-03-03] MED LIST changes: -OMNIPAQUE 350 MG/ML, 100ML BOTTLE ONE
== END | disposition home or self-care (01) ==
LOC: WOUND 11:15
PROVIDERS: ATTEND Podiatrist Foot & Ankle Surgery
DX: L03.116 Cellulitis of left lower limb (principal); J44.9 Chronic obstructive pulmonary disease, unspecified; E11.40 Type 2 diabetes mellitus with diabetic neuropathy, unspecified; E11.22 Type 2 diabetes mellitus with diabetic chronic kidney disease; N18.4 Chronic kidney disease, stage 4 (severe); I25.2 Old myocardial infarction; E11.42 Type 2 diabetes mellitus with diabetic polyneuropathy; Z87.891 Personal history of nicotine dependence
CPT/HCPCS: G0463; WOU0463

== ENCOUNTER → 2017-03-04 | Outpatient (CLI) | payer MEDICARE ==
[~2017-03-04] MED LIST changes: +LIDOCAINE 1%, 20ML ONE
== END | disposition home or self-care (01) ==
LOC: RAD 14:47
PROVIDERS: ATTEND Internal Medicine Gastroenterology
DX: R18.8 Other ascites (principal); R19.7 Diarrhea, unspecified
CPT/HCPCS: 49083; J3490

== ENCOUNTER → 2017-03-18 | Outpatient (CLI) | payer MEDICARE ==
[~2017-03-18] MED LIST changes: +ALBUMIN HUMAN 25%, 25GM/100ML ONE
== END | disposition home or self-care (01) ==
LOC: RAD 13:12
PROVIDERS: ATTEND Internal Medicine Gastroenterology
DX: R18.8 Other ascites (principal); R10.12 Left upper quadrant pain; R19.7 Diarrhea, unspecified; Z88.8 Allergy status to other drugs, medicaments and biological substances
CPT/HCPCS: 49083; J3490; P9047

== ENCOUNTER 2017-04-08 04:34 | Inpatient (IN) | payer MEDICARE ==
[~2017-04-08] VITALS: Ht 160 cm; Wt 90.3 kg
[~2017-04-08 04:34] MED LIST changes: -ALBUMIN HUMAN 25%, 25GM/100ML ONE; -LIDOCAINE 1%, 20ML ONE
[2017-04-08] MEDS ORDERED: ASPIRIN 81 MG TABLET CHEW PO ONE (05:30)
[2017-04-08] MEDS ORDERED: SODIUM CHLORIDE FLUSH 10ML SYR IVF ONE (05:30)
[2017-04-08] MEDS ORDERED: ASPIRIN 81 MG TABLET CHEW ONE (05:45)
[2017-04-08 06:12] LABS: HEMATOCRIT 34.3 % (34.6-47.8); HEMOGLOBIN 11.2 g/dL (11.7-16.4)
[2017-04-08 06:25] LABS: ASPARTATE AMINO TRANSFERASE 24 U/L (15-37); BLOOD UREA NITROGEN 29 mg/dL (7-18)
[2017-04-08 06:26] LABS: IS PT STATUS REG ER OR PRE ER? YES
[2017-04-08] MEDS ORDERED: SODIUM CHLORIDE FLUSH 10ML SYR IVF PRN (08:00)
[2017-04-08] MEDS ORDERED: BISACODYL 10 MG SUPP PR PRN (09:00)
[2017-04-08] MEDS ORDERED: POLYETHYLENE GLYCOL 17 GM PACKET PO PRN (09:00)
[2017-04-08] MEDS ORDERED: DOCUSATE 100 MG CAPSULE PO PRN (09:00)
[2017-04-08] MEDS ORDERED: ONDANSETRON 2MG/ML, 2ML IVPush PRN (09:00)
[2017-04-08] MEDS ORDERED: ALBUTEROL SULFATE INH PRN (09:00)
[2017-04-08] MEDS ORDERED: LABETALOL 5MG/ML, 20ML IVPush PRN (09:00)
[2017-04-08] MEDS ORDERED: ACETAMINOPHEN 325 MG TABLET PO PRN (09:00)
[2017-04-08] MEDS ORDERED: ALBUTEROL SULFATE 2.5 MG/3 ML NEB PRN (09:00)
[2017-04-08] MEDS ORDERED: NITROGLYCERIN 0.4 MG BOTTLE (25 TABS) SL PRN (09:00)
[2017-04-08] MEDS ORDERED: DEXTROSE 4 GM TAB.CHEW PO PRN (09:30)
[2017-04-08] MEDS ORDERED: DEXTROSE 50%, 50ML SYRINGE IVPush PRN (09:30)
[2017-04-08] MEDS ORDERED: GLUCAGON 1 MG IM PRN (09:30)
[2017-04-08] MEDS ORDERED: OMNIPAQUE 350 MG/ML, 100ML BOTTLE ONE (11:36)
[2017-04-08 12:21] LABS: IS PT STATUS REG ER OR PRE ER? NO
[2017-04-08] MEDS: CINACALCET 30 MG TABLET PO SCH (13:26)
[2017-04-08] MEDS: SEVELAMER 800MG TABLET PO SCH ×2 (13:26→18:10)
[2017-04-08] MEDS: HEPARIN 5,000 UNITS/ML, 1ML SQ SCH ×2 (13:27→22:25)
[2017-04-08] MEDS: MIDODRINE 2.5 MG TABLET PO SCH ×3 (13:27→22:24)
[2017-04-08] MEDS: SODIUM CHLORIDE FLUSH 10ML SYR IVF SCH ×3 (13:29→22:23)
[2017-04-08] MEDS: INSULIN ASPART 100 UNITS/ML, PEN SQ-INSULIN SCH ×3 (13:29→22:25)
[2017-04-08] MEDS: TIOTROPIUM BR IH SCH (13:29)
[2017-04-08] MEDS: OLODATEROL HCL IH SCH (13:29)
[2017-04-08] MEDS: VILAZODONE HYDROCHLORIDE 40 MG PO SCH (13:29)
[2017-04-08 15:02] VITALS: BP 123/74
[2017-04-08] MEDS ORDERED: ALBUTEROL/IPRATROPIUM 2.5MG/0.5MG, 3 ML ONE (16:09)
[2017-04-08] MEDS: ALBUTEROL/IPRATROPIUM 2.5MG/0.5MG, 3 ML NPPB SCH (16:28)
[2017-04-08] MEDS: FENTANYL PF 100 MCG/2ML IVPush PRN (18:28)
[2017-04-08 18:55] LABS: IS PT STATUS REG ER OR PRE ER? NO
[2017-04-08 19:13] VITALS: BP 108/57
[2017-04-08] MEDS: GABAPENTIN 300 MG CAPSULE PO SCH (22:23)
[2017-04-08] MEDS: TRAZODONE 50MG TABLET PO SCH (22:23)
[2017-04-09 00:16] VITALS: BP 115/65
[2017-04-09 06:07] LABS: HEMATOCRIT 33.5 % (34.6-47.8); HEMOGLOBIN 11.1 g/dL (11.7-16.4); WHITE BLOOD COUNT 5.9 x10^3/uL (3.4-10)
[2017-04-09] MEDS: HEPARIN 5,000 UNITS/ML, 1ML SQ SCH ×3 (06:34→20:40)
[2017-04-09] MEDS: ASPIRIN 325 MG TABLET PO SCH (06:34)
[2017-04-09 06:49] LABS: ASPARTATE AMINO TRANSFERASE 13 U/L (15-37); BLOOD UREA NITROGEN 24 mg/dL (7-18)
[2017-04-09 07:22] VITALS: BP 123/77
[2017-04-09] MEDS: ALBUTEROL/IPRATROPIUM 2.5MG/0.5MG, 3 ML NPPB SCH ×4 (07:50→18:58)
[2017-04-09] MEDS ORDERED: REGADENOSON 0.4 MG/5 ML SYRINGE ONE (08:04)
[2017-04-09] MEDS: INSULIN ASPART 100 UNITS/ML, PEN SQ-INSULIN SCH ×4 (08:45→20:45)
[2017-04-09] MEDS: MIDODRINE 2.5 MG TABLET PO SCH ×3 (08:45→20:46)
[2017-04-09] MEDS: FENTANYL PF 100 MCG/2ML IVPush PRN ×2 (08:45→12:51)
[2017-04-09] MEDS: SODIUM CHLORIDE FLUSH 10ML SYR IVF SCH ×4 (08:46→20:40)
[2017-04-09] MEDS: TIOTROPIUM BR IH SCH (08:46)
[2017-04-09] MEDS: OLODATEROL HCL IH SCH (08:46)
[2017-04-09] MEDS: SEVELAMER 800MG TABLET PO SCH ×4 (08:46→17:45)
[2017-04-09] MEDS: CINACALCET 30 MG TABLET PO SCH (08:47)
[2017-04-09] MEDS: VILAZODONE HYDROCHLORIDE 40 MG PO SCH (08:47)
[2017-04-09 11:20] LABS: HEP B SURF. AB 3.8 mIU/mL (0.0-10.0)
[2017-04-09 13:08] VITALS: BP 119/73
[2017-04-09] MEDS ORDERED: MAALOX/HYOSCYAMINE/LIDOCAINE 45 ML BTL PO ONE (14:00)
[2017-04-09 14:33] LABS: IS PT STATUS REG ER OR PRE ER? NO
[2017-04-09] MEDS ORDERED: GLUCAGON 1 MG IM PRN ×2 (19:00)
[2017-04-09] MEDS ORDERED: DEXTROSE 50%, 50ML SYRINGE IVPush PRN ×2 (19:00)
[2017-04-09] MEDS ORDERED: NITROGLYCERIN 0.4 MG BOTTLE (25 TABS) SL PRN ×2 (19:00)
[2017-04-09] MEDS ORDERED: ONDANSETRON 2MG/ML, 2ML IVPush PRN ×2 (19:00)
[2017-04-09] MEDS ORDERED: LABETALOL 5MG/ML, 20ML IVPush PRN ×2 (19:00)
[2017-04-09] MEDS ORDERED: POLYETHYLENE GLYCOL 17 GM PACKET PO PRN ×2 (19:00)
[2017-04-09] MEDS ORDERED: ACETAMINOPHEN 325 MG TABLET PO PRN ×2 (19:00)
[2017-04-09] MEDS ORDERED: DEXTROSE 4 GM TAB.CHEW PO PRN ×2 (19:00)
[2017-04-09] MEDS ORDERED: BISACODYL 10 MG SUPP PR PRN ×2 (19:00)
[2017-04-09 19:32] VITALS: BP 117/73
[2017-04-09] MEDS: GABAPENTIN 300 MG CAPSULE PO SCH (20:41)
[2017-04-09] MEDS: TRAZODONE 50MG TABLET PO SCH (20:41)
[2017-04-09] MEDS ORDERED: SODIUM CHLORIDE FLUSH 10ML SYR IVF SCH ×2 (21:00)
[2017-04-10] MEDS: FENTANYL PF 100 MCG/2ML IVPush PRN ×2 (00:27→21:28)
[2017-04-10 00:55] VITALS: BP 117/74
[2017-04-10] MEDS: ASPIRIN 325 MG TABLET PO SCH (05:25)
[2017-04-10] MEDS: HEPARIN 5,000 UNITS/ML, 1ML SQ SCH ×3 (05:25→21:27)
[2017-04-10 05:48] LABS: HEMATOCRIT 33.3 % (34.6-47.8); HEMOGLOBIN 11.1 g/dL (11.7-16.4); WHITE BLOOD COUNT 6.2 x10^3/uL (3.4-10)
[2017-04-10 05:57] LABS: ASPARTATE AMINO TRANSFERASE 11 U/L (15-37); BLOOD UREA NITROGEN 20 mg/dL (7-18)
[2017-04-10 06:11] LABS: IS PT STATUS REG ER OR PRE ER? NO
[2017-04-10 06:24] VITALS: BP 93/60
[2017-04-10] MEDS: ALBUTEROL/IPRATROPIUM 2.5MG/0.5MG, 3 ML NPPB SCH ×4 (07:00→20:30)
[2017-04-10] MEDS: INSULIN ASPART 100 UNITS/ML, PEN SQ-INSULIN SCH ×4 (07:00→22:00)
[2017-04-10] MEDS: VILAZODONE HYDROCHLORIDE 40 MG PO SCH (09:00)
[2017-04-10] MEDS: OLODATEROL HCL IH SCH (09:00)
[2017-04-10] MEDS: SODIUM CHLORIDE FLUSH 10ML SYR IVF SCH ×4 (09:00→21:17)
[2017-04-10] MEDS: TIOTROPIUM BR IH SCH (09:00)
[2017-04-10] MEDS: MIDODRINE 2.5 MG TABLET PO SCH ×3 (09:08→21:17)
[2017-04-10] MEDS: CINACALCET 30 MG TABLET PO SCH (09:09)
[2017-04-10] MEDS: SEVELAMER 800MG TABLET PO SCH ×3 (09:09→16:47)
[2017-04-10 14:24] VITALS: BP 103/68
[2017-04-10] MEDS ORDERED: LIDOCAINE 1%, 20ML ONE (14:57)
[2017-04-10 15:39] LABS: CYTOLOGY BODY FLUID RECD INTO PATHOLOGY; CYTOLOGY BODY FLUID SOURCE PLEURAL FLUID
[2017-04-10 20:00] VITALS: BP 122/77
[2017-04-10] MEDS: TRAZODONE 50MG TABLET PO SCH (21:17)
[2017-04-10] MEDS: GABAPENTIN 300 MG CAPSULE PO SCH (21:17)
[2017-04-11 01:44] VITALS: BP 100/58
[2017-04-11] MEDS: ASPIRIN 325 MG TABLET PO SCH (05:25)
[2017-04-11] MEDS: HEPARIN 5,000 UNITS/ML, 1ML SQ SCH ×2 (05:25→14:00)
[2017-04-11 05:30] LABS: HEMATOCRIT 35.1 % (34.6-47.8); HEMOGLOBIN 11.5 g/dL (11.7-16.4); WHITE BLOOD COUNT 6.4 x10^3/uL (3.4-10)
[2017-04-11 05:51] LABS: ASPARTATE AMINO TRANSFERASE 13 U/L (15-37); BLOOD UREA NITROGEN 29 mg/dL (7-18)
[2017-04-11] MEDS: INSULIN ASPART 100 UNITS/ML, PEN SQ-INSULIN SCH ×2 (07:00→12:20)
[2017-04-11] MEDS: ALBUTEROL/IPRATROPIUM 2.5MG/0.5MG, 3 ML NPPB SCH ×3 (07:30→15:32)
[2017-04-11 08:19] VITALS: BP 111/72
[2017-04-11] MEDS: SEVELAMER 800MG TABLET PO SCH ×2 (08:19→11:57)
[2017-04-11] MEDS: VILAZODONE HYDROCHLORIDE 40 MG PO SCH (08:20)
[2017-04-11] MEDS: MIDODRINE 2.5 MG TABLET PO SCH ×2 (08:20→16:00)
[2017-04-11] MEDS: CINACALCET 30 MG TABLET PO SCH (08:21)
[2017-04-11] MEDS: SODIUM CHLORIDE FLUSH 10ML SYR IVF SCH ×2 (08:23→08:24)
[2017-04-11] MEDS: TIOTROPIUM BR IH SCH (08:24)
[2017-04-11] MEDS: OLODATEROL HCL IH SCH (08:24)
[2017-04-11 15:54] VITALS: BP 119/79
== END 2017-04-11 18:00 | disposition home or self-care (01) | DRG 291 ==
LOC: ED 07:51 → EDIP 07:52 → ED 08:43 → 4WST 09:02
PROVIDERS: ADMIT Hospitalist; ATTEND Hospitalist
PROC: 5A1D70Z Performance of Urinary Filtration, Intermittent, Less than 6 Hours Per Day (ICD-10-PCS; 2017-04-08)
PROC: 5A1D70Z Performance of Urinary Filtration, Intermittent, Less than 6 Hours Per Day (ICD-10-PCS; 2017-04-09)
PROC: 0W993ZX Drainage of Right Pleural Cavity, Percutaneous Approach, Diagnostic (ICD-10-PCS; principal; 2017-04-10)
DX: I13.2 Hypertensive heart and chronic kidney disease with heart failure and with stage 5 chronic kidney disease, or end stage renal disease (principal); N18.6 End stage renal disease; J18.9 Pneumonia, unspecified organism; J90 Pleural effusion, not elsewhere classified; E11.22 Type 2 diabetes mellitus with diabetic chronic kidney disease; E44.0 Moderate protein-calorie malnutrition; I27.20 Pulmonary hypertension, unspecified; I50.41 Acute combined systolic (congestive) and diastolic (congestive) heart failure; J44.0 Chronic obstructive pulmonary disease with (acute) lower respiratory infection; J44.1 Chronic obstructive pulmonary disease with (acute) exacerbation; E11.42 Type 2 diabetes mellitus with diabetic polyneuropathy; D63.1 Anemia in chronic kidney disease; E11.65 Type 2 diabetes mellitus with hyperglycemia; E78.5 Hyperlipidemia, unspecified; E87.6 Hypokalemia; I25.10 Atherosclerotic heart disease of native coronary artery without angina pectoris; I25.2 Old myocardial infarction; I34.0 Nonrheumatic mitral (valve) insufficiency; K72.90 Hepatic failure, unspecified without coma; K74.60 Unspecified cirrhosis of liver; M10.9 Gout, unspecified; R09.02 Hypoxemia; Z79.4 Long term (current) use of insulin; Z79.82 Long term (current) use of aspirin; Z82.49 Family history of ischemic heart disease and other diseases of the circulatory system; Z86.711 Personal history of pulmonary embolism; Z87.891 Personal history of nicotine dependence; Z90.49 Acquired absence of other specified parts of digestive tract; Z95.5 Presence of coronary angioplasty implant and graft; Z99.2 Dependence on renal dialysis; Z99.81 Dependence on supplemental oxygen
CPT/HCPCS: 32555; 36415; 71010; 71275; 78452; 80053; 82010; 82140; 82962; 83615; 83690; 83735; 83880; 84100; 84157; 84484; 84550; 85025; 85610; 85730; 86704; 86706; 87070; 87075; 87205; 87340; 88112; 88305; 89051; 93005; 93017; 94640; 99285; J1644; J1815; J2785; J3010; J3490; J7613; J7620; Q9967; A9502; C9898

== ENCOUNTER → 2017-04-27 | Outpatient (CLI) | payer MEDICARE ==
[~2017-04-27] MED LIST changes: +ALBUMIN HUMAN 25% 100 ML IV PRN; +LIDOCAINE 2%, 20ML ONE
== END | disposition home or self-care (01) ==
LOC: RAD 10:54
PROVIDERS: ATTEND Internal Medicine Gastroenterology
DX: K74.69 Other cirrhosis of liver (principal); R18.8 Other ascites
CPT/HCPCS: 32555; 49083; J3490; P9047

== ENCOUNTER 2017-04-29 11:22 | Inpatient (IN) | payer MEDICARE ==
[~2017-04-29] VITALS: Ht 160 cm; Wt 97.3 kg
[~2017-04-29 11:22] MED LIST changes: -ALBUMIN HUMAN 25% 100 ML IV PRN; -LIDOCAINE 2%, 20ML ONE
[2017-04-29] MEDS ORDERED: ALBUTEROL/IPRATROPIUM 2.5MG/0.5MG, 3 ML ONE (11:46)
[2017-04-29] MEDS ORDERED: ALBUTEROL/IPRATROPIUM 2.5MG/0.5MG, 3 ML NPPB ONE (12:00)
[2017-04-29 12:04] LABS: HEMATOCRIT 37.8 % (34.6-47.8); HEMOGLOBIN 12.5 g/dL (11.7-16.4); WHITE BLOOD COUNT 5.6 x10^3/uL (3.4-10)
[2017-04-29 12:17] LABS: BLOOD UREA NITROGEN 43 mg/dL (7-18)
[2017-04-29 12:40] LABS: IS PT STATUS REG ER OR PRE ER? YES
[2017-04-29] MEDS ORDERED: ASPIRIN 81 MG TABLET CHEW ONE (12:49)
[2017-04-29] MEDS ORDERED: ASPIRIN 81 MG TABLET CHEW PO ONE (13:00)
[2017-04-29 14:30] VITALS: BP 133/81
[2017-04-29] MEDS ORDERED: hydrALAzine 20 MG/ML, 1ML IVPush PRN (14:30)
[2017-04-29] MEDS ORDERED: ALBUTEROL SULFATE 2.5 MG/3 ML NEB PRN (14:30)
[2017-04-29] MEDS ORDERED: ONDANSETRON 2MG/ML, 2ML IVPush PRN (14:30)
[2017-04-29] MEDS ORDERED: ALBUTEROL SULFATE 2.5 MG/3 ML NPPB PRN (15:00)
[2017-04-29] MEDS: INSULIN ASPART 100 UNITS/ML, PEN SQ-INSULIN SCH ×2 (16:00→21:30)
[2017-04-29] MEDS: HEPARIN 5,000 UNITS/ML, 1ML SQ SCH ×2 (16:12→22:06)
[2017-04-29] MEDS: MIDODRINE 2.5 MG TABLET PO SCH ×2 (16:13→20:47)
[2017-04-29] MEDS ORDERED: SEVELAMER 800MG TABLET PO SCH ×2 (17:00)
[2017-04-29] MEDS ORDERED: SEVELAMER 2.4 GM POWD.PACK PO SCH (17:00)
[2017-04-29] MEDS: SEVELAMER 800MG TABLET PO SCH (17:03)
[2017-04-29] MEDS: LEVOFLOXACIN/PMX 500MG/100ML 100 ML IV SCH (18:29)
[2017-04-29 19:54] VITALS: BP 117/78
[2017-04-29] MEDS: GABAPENTIN 300 MG CAPSULE PO SCH (20:46)
[2017-04-29] MEDS: TRAZODONE 50MG TABLET PO SCH (20:46)
[2017-04-30 02:19] VITALS: BP 129/76
[2017-04-30 05:58] LABS: HEMATOCRIT 35.7 % (34.6-47.8); HEMOGLOBIN 11.8 g/dL (11.7-16.4)
[2017-04-30] MEDS: HEPARIN 5,000 UNITS/ML, 1ML SQ SCH ×3 (06:01→22:30)
[2017-04-30 06:28] LABS: ASPARTATE AMINO TRANSFERASE 13 U/L (15-37); BLOOD UREA NITROGEN 51 mg/dL (7-18)
[2017-04-30] MEDS: INSULIN ASPART 100 UNITS/ML, PEN SQ-INSULIN SCH ×4 (07:00→20:54)
[2017-04-30 08:28] VITALS: BP 126/78
[2017-04-30] MEDS: CINACALCET 30 MG TABLET PO SCH (08:51)
[2017-04-30] MEDS: SEVELAMER 800MG TABLET PO SCH ×3 (08:51→17:08)
[2017-04-30] MEDS: MIDODRINE 2.5 MG TABLET PO SCH ×3 (08:51→20:54)
[2017-04-30] MEDS: ASPIRIN 81 MG TABLET EC PO SCH (08:51)
[2017-04-30] MEDS: TEMPLATE NON-FORMULARY MED. (Vilazodone Hydrochloride** (Viibryd**) 40 MG) PO SCH (08:53)
[2017-04-30 14:30] VITALS: BP 149/84
[2017-04-30 20:00] VITALS: BP 135/82
[2017-04-30] MEDS: GABAPENTIN 300 MG CAPSULE PO SCH (21:00)
[2017-04-30] MEDS: TRAZODONE 50MG TABLET PO SCH (21:00)
[2017-05-01 01:50] VITALS: BP 132/85
[2017-05-01 05:43] LABS: BLOOD UREA NITROGEN 28 mg/dL (7-18)
[2017-05-01 05:44] LABS: HEMOGLOBIN 11.7 g/dL (11.7-16.4); WHITE BLOOD COUNT 6.2 x10^3/uL (3.4-10)
[2017-05-01 05:46] LABS: ASPARTATE AMINO TRANSFERASE 13 U/L (15-37)
[2017-05-01] MEDS: HEPARIN 5,000 UNITS/ML, 1ML SQ SCH ×2 (06:30→16:32)
[2017-05-01] MEDS: INSULIN ASPART 100 UNITS/ML, PEN SQ-INSULIN SCH ×4 (07:00→21:38)
[2017-05-01 07:54] VITALS: BP 107/70
[2017-05-01 08:52] VITALS: BP 131/79
[2017-05-01] MEDS: SEVELAMER 800MG TABLET PO SCH ×3 (08:55→17:45)
[2017-05-01] MEDS: ASPIRIN 81 MG TABLET EC PO SCH (08:55)
[2017-05-01] MEDS: MIDODRINE 2.5 MG TABLET PO SCH ×3 (08:55→21:30)
[2017-05-01] MEDS: CINACALCET 30 MG TABLET PO SCH (08:55)
[2017-05-01] MEDS: TEMPLATE NON-FORMULARY MED. (Vilazodone Hydrochloride** (Viibryd**) 40 MG) PO SCH ×2 (08:56→17:10)
[2017-05-01 13:18] VITALS: BP 126/85
[2017-05-01 14:34] LABS: FERRITIN 732.8 ng/mL (8-252)
[2017-05-01] MEDS: LEVOFLOXACIN/PMX 500MG/100ML 100 ML IV SCH (16:33)
[2017-05-01] MEDS ORDERED: CLON0.5T PO (16:39)
[2017-05-01] MEDS ORDERED: CALCIUM CARBONATE 500 MG TAB.CHEW PO PRN (17:00)
[2017-05-01 19:28] VITALS: BP 105/68
[2017-05-01] MEDS: GABAPENTIN 300 MG CAPSULE PO SCH (21:30)
[2017-05-01] MEDS: TRAZODONE 50MG TABLET PO SCH (21:30)
[2017-05-02 01:27] VITALS: BP 104/70
[2017-05-02] MEDS: HEPARIN 5,000 UNITS/ML, 1ML SQ SCH ×3 (01:32→17:07)
[2017-05-02 05:32] LABS: HEMATOCRIT 34.9 % (34.6-47.8); HEMOGLOBIN 11.6 g/dL (11.7-16.4); WHITE BLOOD COUNT 6.3 x10^3/uL (3.4-10)
[2017-05-02 06:04] LABS: ASPARTATE AMINO TRANSFERASE 12 U/L (15-37); BLOOD UREA NITROGEN 37 mg/dL (7-18)
[2017-05-02] MEDS: INSULIN ASPART 100 UNITS/ML, PEN SQ-INSULIN SCH ×4 (07:00→21:00)
[2017-05-02 07:55] VITALS: BP 110/70
[2017-05-02] MEDS: MIDODRINE 2.5 MG TABLET PO SCH ×3 (09:28→22:09)
[2017-05-02] MEDS: CINACALCET 30 MG TABLET PO SCH (09:28)
[2017-05-02] MEDS: ASPIRIN 81 MG TABLET EC PO SCH (09:28)
[2017-05-02] MEDS: TEMPLATE NON-FORMULARY MED. (Vilazodone Hydrochloride** (Viibryd**) 40 MG) PO SCH (09:29)
[2017-05-02] MEDS: SEVELAMER 800MG TABLET PO SCH ×3 (09:29→17:07)
[2017-05-02 13:00] VITALS: BP 122/81
[2017-05-02 19:14] VITALS: BP 104/71
[2017-05-02] MEDS: GABAPENTIN 300 MG CAPSULE PO SCH (22:09)
[2017-05-02] MEDS: TRAZODONE 50MG TABLET PO SCH (22:09)
[2017-05-03 01:18] VITALS: BP_SYST 108; BP_DIAS 72; BP_DIAS 74
[2017-05-03] MEDS: HEPARIN 5,000 UNITS/ML, 1ML SQ SCH ×3 (05:00→21:06)
[2017-05-03 06:00] LABS: ASPARTATE AMINO TRANSFERASE 8 U/L (15-37); BLOOD UREA NITROGEN 47 mg/dL (7-18)
[2017-05-03] MEDS: INSULIN ASPART 100 UNITS/ML, PEN SQ-INSULIN SCH ×4 (07:00→20:55)
[2017-05-03] MEDS ORDERED: LIDOCAINE 2%, 20ML ONE (07:43)
[2017-05-03 07:53] VITALS: BP 115/52
[2017-05-03 07:54] LABS: 027-NAP1-BI Presumpt Negative (Negative)
[2017-05-03 08:39] LABS: CYTOLOGY BODY FLUID RECD INTO PATHOLOGY; CYTOLOGY BODY FLUID SOURCE PLEURAL FLUID
[2017-05-03] MEDS: CINACALCET 30 MG TABLET PO SCH (09:00)
[2017-05-03] MEDS: ASPIRIN 81 MG TABLET EC PO SCH (09:06)
[2017-05-03] MEDS: MIDODRINE 2.5 MG TABLET PO SCH ×3 (09:06→21:05)
[2017-05-03] MEDS: SEVELAMER 800MG TABLET PO SCH ×3 (09:07→17:00)
[2017-05-03 12:30] LABS: HEP B SURF. AB 3.4 mIU/mL (0.0-10.0)
[2017-05-03 14:22] VITALS: BP 116/74
[2017-05-03 19:08] VITALS: BP 112/70
[2017-05-03] MEDS: TEMPLATE NON-FORMULARY MED. (Vilazodone Hydrochloride** (Viibryd**) 40 MG) PO SCH (21:00)
[2017-05-03] MEDS: GABAPENTIN 300 MG CAPSULE PO SCH (21:05)
[2017-05-03] MEDS: LEVOFLOXACIN/PMX 500MG/100ML 100 ML IV SCH (21:05)
[2017-05-03] MEDS: TRAZODONE 50MG TABLET PO SCH (21:05)
[2017-05-04 01:06] VITALS: BP 106/64
[2017-05-04] MEDS: INSULIN ASPART 100 UNITS/ML, PEN SQ-INSULIN SCH ×4 (07:00→21:00)
[2017-05-04 07:19] LABS: HEMATOCRIT 34.1 % (34.6-47.8); HEMOGLOBIN 11.4 g/dL (11.7-16.4); WHITE BLOOD COUNT 6.1 x10^3/uL (3.4-10)
[2017-05-04 07:20] VITALS: BP 103/55
[2017-05-04 07:32] LABS: BLOOD UREA NITROGEN 31 mg/dL (7-18)
[2017-05-04] MEDS: SEVELAMER 800MG TABLET PO SCH ×3 (08:05→17:02)
[2017-05-04] MEDS: CINACALCET 30 MG TABLET PO SCH (08:06)
[2017-05-04] MEDS: MIDODRINE 2.5 MG TABLET PO SCH ×3 (08:06→22:16)
[2017-05-04] MEDS: HEPARIN 5,000 UNITS/ML, 1ML SQ SCH ×2 (08:06→17:02)
[2017-05-04] MEDS: ASPIRIN 81 MG TABLET EC PO SCH (08:06)
[2017-05-04] MEDS: TEMPLATE NON-FORMULARY MED. (Vilazodone Hydrochloride** (Viibryd**) 40 MG) PO SCH (08:06)
[2017-05-04 14:11] VITALS: BP 117/60
[2017-05-04 19:52] VITALS: BP 112/54
[2017-05-04] MEDS: TRAZODONE 50MG TABLET PO SCH (22:16)
[2017-05-04] MEDS: GABAPENTIN 300 MG CAPSULE PO SCH (22:16)
[2017-05-05 01:52] VITALS: BP 118/56
[2017-05-05] MEDS: INSULIN ASPART 100 UNITS/ML, PEN SQ-INSULIN SCH ×4 (07:00→21:32)
[2017-05-05 07:50] VITALS: BP 111/66
[2017-05-05] MEDS: SEVELAMER 800MG TABLET PO SCH ×3 (08:25→17:25)
[2017-05-05] MEDS ORDERED: LIDOCAINE 1%, 20ML ONE (08:28)
[2017-05-05] MEDS: MIDODRINE 2.5 MG TABLET PO SCH ×3 (09:00→21:31)
[2017-05-05] MEDS: ASPIRIN 81 MG TABLET EC PO SCH (09:00)
[2017-05-05] MEDS: HEPARIN 5,000 UNITS/ML, 1ML SQ SCH ×4 (09:50→23:20)
[2017-05-05 15:35] VITALS: BP 118/66
[2017-05-05 20:00] VITALS: BP 102/54
[2017-05-05] MEDS: TEMPLATE NON-FORMULARY MED. (Vilazodone Hydrochloride** (Viibryd**) 40 MG) PO SCH (21:00)
[2017-05-05] MEDS: CINACALCET 30 MG TABLET PO SCH (21:32)
[2017-05-05] MEDS: TRAZODONE 50MG TABLET PO SCH (21:32)
[2017-05-05] MEDS: GABAPENTIN 300 MG CAPSULE PO SCH (21:32)
[2017-05-05] MEDS: LEVOFLOXACIN/PMX 500MG/100ML 100 ML IV SCH (21:32)
[2017-05-06 02:30] VITALS: BP 106/56
[2017-05-06] MEDS: INSULIN ASPART 100 UNITS/ML, PEN SQ-INSULIN SCH ×4 (07:00→21:00)
[2017-05-06 08:30] VITALS: BP 102/51
[2017-05-06] MEDS: TEMPLATE NON-FORMULARY MED. (Vilazodone Hydrochloride** (Viibryd**) 40 MG) PO SCH (09:00)
[2017-05-06] MEDS: HEPARIN 5,000 UNITS/ML, 1ML SQ SCH ×2 (09:22→17:10)
[2017-05-06] MEDS: SEVELAMER 800MG TABLET PO SCH ×3 (09:23→17:10)
[2017-05-06] MEDS: MIDODRINE 2.5 MG TABLET PO SCH ×3 (09:24→21:39)
[2017-05-06] MEDS: ASPIRIN 81 MG TABLET EC PO SCH (09:24)
[2017-05-06] MEDS: CINACALCET 30 MG TABLET PO SCH (09:24)
[2017-05-06 14:30] VITALS: BP 115/69
[2017-05-06 19:01] VITALS: BP 104/47
[2017-05-06] MEDS: GABAPENTIN 300 MG CAPSULE PO SCH (21:39)
[2017-05-06] MEDS: TRAZODONE 50MG TABLET PO SCH (21:39)
[2017-05-07 01:36] VITALS: BP 103/60
[2017-05-07] MEDS: HEPARIN 5,000 UNITS/ML, 1ML SQ SCH ×3 (05:50→22:49)
[2017-05-07 06:14] LABS: BLOOD UREA NITROGEN 40 mg/dL (7-18)
[2017-05-07 06:17] LABS: ASPARTATE AMINO TRANSFERASE 9 U/L (15-37)
[2017-05-07] MEDS: INSULIN ASPART 100 UNITS/ML, PEN SQ-INSULIN SCH ×4 (07:00→21:00)
[2017-05-07 07:55] VITALS: BP 103/50
[2017-05-07] MEDS: SEVELAMER 800MG TABLET PO SCH ×3 (08:08→17:31)
[2017-05-07] MEDS: CINACALCET 30 MG TABLET PO SCH (08:08)
[2017-05-07] MEDS: MIDODRINE 2.5 MG TABLET PO SCH ×3 (08:08→21:21)
[2017-05-07] MEDS: ASPIRIN 81 MG TABLET EC PO SCH (08:08)
[2017-05-07] MEDS: TEMPLATE NON-FORMULARY MED. (Vilazodone Hydrochloride** (Viibryd**) 40 MG) PO SCH (09:00)
[2017-05-07] MEDS: LEVOFLOXACIN/PMX 500MG/100ML 100 ML IV SCH (17:31)
[2017-05-07 18:58] VITALS: BP 102/56
[2017-05-07] MEDS: GABAPENTIN 300 MG CAPSULE PO SCH (21:21)
[2017-05-07] MEDS: TRAZODONE 50MG TABLET PO SCH (21:21)
[2017-05-07 22:44] VITALS: BP 96/54
[2017-05-07 22:47] VITALS: BP 104/47
[2017-05-08 02:57] VITALS: BP 97/57
[2017-05-08] MEDS: HEPARIN 5,000 UNITS/ML, 1ML SQ SCH ×2 (06:00→13:09)
[2017-05-08] MEDS: INSULIN ASPART 100 UNITS/ML, PEN SQ-INSULIN SCH ×2 (07:00→11:00)
[2017-05-08 08:24] VITALS: BP 110/57
[2017-05-08] MEDS ORDERED: POLYETHYLENE GLYCOL 17 GM PACKET ONE (08:47)
[2017-05-08] MEDS ORDERED: POLYETHYLENE GLYCOL 17 GM PACKET PO SCH (09:00)
[2017-05-08] MEDS: ASPIRIN 81 MG TABLET EC PO SCH (09:00)
[2017-05-08] MEDS: TEMPLATE NON-FORMULARY MED. (Vilazodone Hydrochloride** (Viibryd**) 40 MG) PO SCH (09:00)
[2017-05-08] MEDS ORDERED: BISACODYL 10 MG SUPP PR PRN (09:00)
[2017-05-08] MEDS: CINACALCET 30 MG TABLET PO SCH (09:00)
[2017-05-08] MEDS: MIDODRINE 2.5 MG TABLET PO SCH (09:00)
[2017-05-08] MEDS: SEVELAMER 800MG TABLET PO SCH ×2 (09:00→12:32)
[2017-05-08] MEDS ORDERED: CALC200T24 PO (13:08)
[2017-05-08] MEDS ORDERED: POLY17PO5 PO (13:08)
== END 2017-05-08 15:00 | DRG 189 ==
LOC: ED 12:10 → EDIP 12:49 → 4WST 14:43
PROVIDERS: ADMIT Hospitalist; ATTEND Internal Medicine
PROC: 5A1D70Z Performance of Urinary Filtration, Intermittent, Less than 6 Hours Per Day (ICD-10-PCS; 2017-04-30)
PROC: 5A1D70Z Performance of Urinary Filtration, Intermittent, Less than 6 Hours Per Day (ICD-10-PCS; 2017-05-03)
PROC: 0W993ZX Drainage of Right Pleural Cavity, Percutaneous Approach, Diagnostic (ICD-10-PCS; 2017-05-03)
PROC: 5A1D70Z Performance of Urinary Filtration, Intermittent, Less than 6 Hours Per Day (ICD-10-PCS; 2017-05-04)
PROC: 5A1D70Z Performance of Urinary Filtration, Intermittent, Less than 6 Hours Per Day (ICD-10-PCS; principal; 2017-05-05)
PROC: 0W9G3ZZ Drainage of Peritoneal Cavity, Percutaneous Approach (ICD-10-PCS; 2017-05-05)
DX: J96.20 Acute and chronic respiratory failure, unspecified whether with hypoxia or hypercapnia (principal); I13.2 Hypertensive heart and chronic kidney disease with heart failure and with stage 5 chronic kidney disease, or end stage renal disease; J18.9 Pneumonia, unspecified organism; E11.22 Type 2 diabetes mellitus with diabetic chronic kidney disease; E11.42 Type 2 diabetes mellitus with diabetic polyneuropathy; N18.6 End stage renal disease; I50.30 Unspecified diastolic (congestive) heart failure; I48.2 Chronic atrial fibrillation; J44.0 Chronic obstructive pulmonary disease with (acute) lower respiratory infection; N25.81 Secondary hyperparathyroidism of renal origin; E87.1 Hypo-osmolality and hyponatremia; K74.60 Unspecified cirrhosis of liver; E03.9 Hypothyroidism, unspecified; F41.9 Anxiety disorder, unspecified; E78.5 Hyperlipidemia, unspecified; I25.10 Atherosclerotic heart disease of native coronary artery without angina pectoris; G43.909 Migraine, unspecified, not intractable, without status migrainosus; K72.90 Hepatic failure, unspecified without coma; F32.9 Major depressive disorder, single episode, unspecified; D64.9 Anemia, unspecified; I34.0 Nonrheumatic mitral (valve) insufficiency; M10.9 Gout, unspecified; Z79.4 Long term (current) use of insulin; Z82.49 Family history of ischemic heart disease and other diseases of the circulatory system; Z83.3 Family history of diabetes mellitus; Z95.5 Presence of coronary angioplasty implant and graft; Z86.711 Personal history of pulmonary embolism; I25.2 Old myocardial infarction; Z90.49 Acquired absence of other specified parts of digestive tract; Z87.891 Personal history of nicotine dependence; Z99.2 Dependence on renal dialysis; Z99.81 Dependence on supplemental oxygen; Z98.51 Tubal ligation status; Z98.49 Cataract extraction status, unspecified eye; Z89.411 Acquired absence of right great toe; Z80.8 Family history of malignant neoplasm of other organs or systems; Z84.89 Family history of other specified conditions; E55.9 Vitamin D deficiency, unspecified
CPT/HCPCS: 32555; 36415; 49083; 71010; 80048; 80053; 82040; 82728; 82962; 83540; 83550; 83615; 83735; 83880; 84100; 84157; 84439; 84443; 84484; 85025; 86704; 86706; 87040; 87070; 87075; 87205; 87324; 87340; 87493; 88112; 89051; 93005; 94640; 99285; J1644; J1815; J1956; J3490; J7620

== ENCOUNTER → 2017-05-20 | Outpatient (CLI) | payer MEDICARE ==
[~2017-05-20] MED LIST changes: +CALC200T24 PO; +CLON0.5T PO; +LIDOCAINE 2%, 20ML ONE
== END ==
LOC: RAD 09:49
PROVIDERS: ATTEND Internal Medicine Gastroenterology
DX: J90 Pleural effusion, not elsewhere classified (principal); R18.8 Other ascites
CPT/HCPCS: 32555; 49083; J3490

== ENCOUNTER → 2017-06-07 | Outpatient (CLI) | payer MEDICARE ==
[~2017-06-07] MED LIST changes: +LIDOCAINE 1%, 10ML ONE
== END ==
LOC: RAD 14:20
PROVIDERS: ATTEND Internal Medicine Gastroenterology
DX: K74.60 Unspecified cirrhosis of liver (principal); R18.8 Other ascites; J90 Pleural effusion, not elsewhere classified
CPT/HCPCS: 32555; 49083; J3490

== ENCOUNTER → 2017-06-24 | Outpatient (CLI) | payer MEDICARE ==
[~2017-06-24] MED LIST changes: -LIDOCAINE 1%, 10ML ONE; +LIDOCAINE 1%, 20ML ONE; -LIDOCAINE 2%, 20ML ONE
== END ==
LOC: RAD 08:44
PROVIDERS: ATTEND Internal Medicine
DX: R18.8 Other ascites (principal); J90 Pleural effusion, not elsewhere classified; Z98.890 Other specified postprocedural states
CPT/HCPCS: 32555; 49083; 71045; 71046; J3490

== ENCOUNTER → 2017-08-02 | Outpatient (CLI) | payer MEDICARE ==
[~2017-08-02] MED LIST changes: +INSU100V SQ; +PRED10TA PO
== END ==
LOC: RAD 11:45
PROVIDERS: ATTEND Internal Medicine Gastroenterology
DX: R14.0 Abdominal distension (gaseous) (principal); R18.8 Other ascites
CPT/HCPCS: 32555; 49083; J3490

== ENCOUNTER → 2017-08-16 | Outpatient (CLI) | payer MEDICARE ==
[~2017-08-16] MED LIST changes: +ACET325T14 PO; +ERTA1VIA IV; +FAMO20TA7 PO
== END | disposition home or self-care (01) ==
LOC: RAD 11:10
PROVIDERS: ATTEND Internal Medicine
DX: J90 Pleural effusion, not elsewhere classified (principal); I51.7 Cardiomegaly; R18.8 Other ascites
CPT/HCPCS: 32555; 49083; 71045; J3490

== ENCOUNTER → 2017-08-29 | Outpatient (CLI) | payer MEDICARE ==
[~2017-08-29] MED LIST changes: -LIDOCAINE 1%, 20ML ONE; +LIDOCAINE-MPF 1%, 5ML ONE
== END | disposition home or self-care (01) ==
LOC: RAD 09:41
PROVIDERS: ATTEND Internal Medicine Gastroenterology
DX: J90 Pleural effusion, not elsewhere classified (principal)
CPT/HCPCS: 32555; 71046